=== PATIENT | male | born 1940 | race Caucasian/White ===

== ENCOUNTER 2019-02-23 19:04 | Inpatient (IN) ==
[2019-02-23] MEDS ORDERED: ACETAMINOPHEN 325 MG TABLET PO PRN (22:09)
[2019-02-23] MEDS ORDERED: ALBUTEROL/IPRATROPIUM 3 ML NEB RESP TX PRN (22:09)
[2019-02-23 22:16] LABS: Basophils % 0.3 % (0.0-0.8); Eosinophils # 0.1 10*3/uL (0.0-0.87); Eosinophils % 0.4 % (0.00-10.9); Hematocrit 38.1 VOL% (42.0-52.0); Hemoglobin 12.4 GM/DL (14.0-18.0); Immature Granulocytes % 0.4 %; Immature Granulocytes Absolute 0.05 #; Lymphocytes # 2.1 10*3/uL (1.4-4.0); Lymphocytes % 16.4 % (21.2-54.2); Mean Corpuscular HGB Conc 32.5 GM/DL (32-36); Mean Corpuscular Volume 96.5 FL (87-102); Mean Platelet Volume 10.8 FL (9.6-12.0); Monocytes % 8.1 % (1.7-12.7); Neutrophils % 74.4 % (38.7-73.9); Platelet Count 164 T/CUMM (130-400); Red Blood Count 3.95 MC/CUMM (3.8-5.5); Red Cell Distribution Width 14.9 % (9.3-17.3)
[2019-02-23] MEDS ORDERED: SODIUM CHLORIDE 0.45% 1,000 ML IV SCH (22:30)
[2019-02-23 22:39] LABS: Osmolality,Calculated 293.3 MOS/KG (273-304)
[2019-02-23] MEDS ORDERED: ONDANSETRON 4 MG/2 ML VIAL IV PRN (23:49)
[2019-02-24] MEDS ORDERED: cefTRIAXone 1,000 MG in SYRINGE 1 EACH IV SCH
[2019-02-24 01:18] LABS: PT Patient Result 60.6 SECS (9.6-12.2)
[2019-02-24 01:20] LABS: INR 5.7
[2019-02-24 01:22] LABS: Basophils % 0.3 % (0.0-0.8); Eosinophils # 0.1 10*3/uL (0.0-0.87); Eosinophils % 0.7 % (0.00-10.9); Hematocrit 39.9 VOL% (42.0-52.0); Hemoglobin 12.9 GM/DL (14.0-18.0); Immature Granulocytes % 0.4 %; Immature Granulocytes Absolute 0.06 #; Lymphocytes # 2.6 10*3/uL (1.4-4.0); Lymphocytes % 19.1 % (21.2-54.2); Mean Corpuscular HGB Conc 32.3 GM/DL (32-36); Mean Corpuscular Volume 97.6 FL (87-102); Mean Platelet Volume 10.8 FL (9.6-12.0); Neutrophils % 69.5 % (38.7-73.9); Platelet Count 169 T/CUMM (130-400); Red Blood Count 4.09 MC/CUMM (3.8-5.5); White Blood Count 13.3 T/CUMM (4-12)
[2019-02-24 01:23] LABS: Calcium 8.7 MG/DL (8.5-10.1); Osmolality,Calculated 290.3 MOS/KG (273-304)
[2019-02-24] MEDS: SODIUM CHLORIDE 0.9% 1,000 ML IV SCH ×4 (02:02→23:00)
[2019-02-24 02:58] LABS: PT Patient Result 80.2 SECS (9.6-12.2)
[2019-02-24 03:00] LABS: INR 7.5
[2019-02-24 04:02] LABS: INR 5.6; PT Patient Result 59.5 SECS (9.6-12.2)
[2019-02-24] MEDS: guaiFENesin 200 MG/10 ML UDCUP PO PRN ×3 (05:44→20:42)
[2019-02-24 08:10] LABS: INR 4.9
[2019-02-24] MEDS ORDERED: ENOXAPARIN 40 MG/0.4 ML SYRINGE SUBCUT SCH (09:00)
[2019-02-24] MEDS ORDERED: DOXYCYCLINE HYCLATE 100 MG CAPSULE PO SCH (09:00)
[2019-02-24] MEDS ORDERED: AZITHROMYCIN 250 MG TABLET PO SCH (09:00)
[2019-02-24] MEDS: GABAPENTIN 100 MG CAPSULE PO SCH ×3 (09:19→20:41)
[2019-02-24] MEDS: PANTOPRAZOLE 40 MG TABLET PO SCH (09:19)
[2019-02-24] MEDS: METOPROLOL SUCCINATE XL 50 MG TABLET PO SCH (09:19)
[2019-02-24 10:36] LABS: Risk Ratio 3.78; VLDL CHOLESTEROL 36.2 MG/DL
[2019-02-24] MEDS: ALBUTEROL/IPRATROPIUM 3 ML NEB RESP TX SCH ×2 (13:16→19:52)
[2019-02-24 13:51] LABS: PT Patient Result 59.4 SECS (9.6-12.2)
[2019-02-24 13:52] LABS: INR 5.5
[2019-02-24] MEDS: ATORVASTATIN 20 MG TABLET PO SCH (20:41)
[2019-02-24] MEDS: cefTRIAXone 1,000 MG in SYRINGE 1 EACH IV SCH (20:44)
[2019-02-24] MEDS: ACETAMINOPHEN 325 MG TABLET PO PRN (23:21)
[2019-02-25] MEDS: ALBUTEROL/IPRATROPIUM 3 ML NEB RESP TX SCH ×4 (01:25→19:55)
[2019-02-25 05:28] LABS: Basophils # 0.1 10*3/uL (0.0-0.2); Basophils % 0.4 % (0.0-0.8); Eosinophils # 0.2 10*3/uL (0.0-0.87); Eosinophils % 1.5 % (0.00-10.9); Hematocrit 39.4 VOL% (42.0-52.0); Hemoglobin 12.4 GM/DL (14.0-18.0); Immature Granulocytes Absolute 0.12 #; Lymphocytes % 17.4 % (21.2-54.2); Mean Corpuscular HGB Conc 31.5 GM/DL (32-36); Mean Corpuscular Volume 99.2 FL (87-102); Mean Platelet Volume 10.4 FL (9.6-12.0); Monocytes % 8.8 % (1.7-12.7); Neutrophils % 70.9 % (38.7-73.9); Platelet Count 169 T/CUMM (130-400); Red Blood Count 3.97 MC/CUMM (3.8-5.5); Red Cell Distribution Width 14.9 % (9.3-17.3); White Blood Count 11.5 T/CUMM (4-12)
[2019-02-25 05:30] LABS: INR 4.3
[2019-02-25 05:32] LABS: PT Patient Result 46.3 SECS (9.6-12.2)
[2019-02-25] MEDS: SODIUM CHLORIDE 0.9% 1,000 ML IV SCH ×2 (06:06→20:38)
[2019-02-25] MEDS: PANTOPRAZOLE 40 MG TABLET PO SCH (08:44)
[2019-02-25] MEDS: GABAPENTIN 100 MG CAPSULE PO SCH ×3 (08:44→20:41)
[2019-02-25] MEDS: METOPROLOL SUCCINATE XL 50 MG TABLET PO SCH (08:44)
[2019-02-25] MEDS: cefTRIAXone 1,000 MG in SYRINGE 1 EACH IV SCH (08:44)
[2019-02-25] MEDS: AZITHROMYCIN INJ 500 MG in SODIUM CHLORIDE 0.9% 250 ML IV SCH (08:46)
[2019-02-25] MEDS: DILTIAZEM CD 120 MG CAPSULE PO SCH ×2 (11:17→20:41)
[2019-02-25 11:27] LABS: Calcium 8.2 MG/DL (8.5-10.1); Osmolality,Calculated 288.1 MOS/KG (273-304)
[2019-02-25] MEDS ORDERED: MAGNESIUM SULF RIDER 4 GM in PREMIX 1 EACH IV PRN (12:12)
[2019-02-25] MEDS ORDERED: MAGNESIUM SULF RIDER 2 GM in PREMIX 1 EACH IV PRN (12:12)
[2019-02-25] MEDS: ACETAMINOPHEN 325 MG TABLET PO PRN ×2 (14:44→20:40)
[2019-02-25] MEDS: ATORVASTATIN 20 MG TABLET PO SCH (20:45)
[2019-02-26] MEDS: ALBUTEROL/IPRATROPIUM 3 ML NEB RESP TX SCH ×4 (01:35→19:16)
[2019-02-26] MEDS: ACETAMINOPHEN 325 MG TABLET PO PRN (05:14)
[2019-02-26] MEDS: guaiFENesin 200 MG/10 ML UDCUP PO PRN ×2 (05:16→12:48)
[2019-02-26 06:07] LABS: Basophils % 0.3 % (0.0-0.8); Eosinophils # 0.3 10*3/uL (0.0-0.87); Eosinophils % 2.7 % (0.00-10.9); Hematocrit 37.5 VOL% (42.0-52.0); Immature Granulocytes % 1.4 %; Immature Granulocytes Absolute 0.13 #; Lymphocytes # 1.6 10*3/uL (1.4-4.0); Lymphocytes % 16.9 % (21.2-54.2); Mean Corpuscular Volume 96.2 FL (87-102); Mean Platelet Volume 10.2 FL (9.6-12.0); Monocytes % 8.1 % (1.7-12.7); Neutrophils % 70.6 % (38.7-73.9); Platelet Count 190 T/CUMM (130-400); Red Cell Distribution Width 15.1 % (9.3-17.3); White Blood Count 9.6 T/CUMM (4-12)
[2019-02-26 06:19] LABS: Calcium 8.6 MG/DL (8.5-10.1)
[2019-02-26 06:24] LABS: INR 3.3
[2019-02-26 06:26] LABS: PT Patient Result 35.1 SECS (9.6-12.2)
[2019-02-26] MEDS: GABAPENTIN 100 MG CAPSULE PO SCH ×3 (08:35→20:56)
[2019-02-26] MEDS: DILTIAZEM CD 120 MG CAPSULE PO SCH ×2 (08:35→20:55)
[2019-02-26] MEDS: SODIUM CHLORIDE 0.9% 1,000 ML IV SCH (08:36)
[2019-02-26] MEDS: PANTOPRAZOLE 40 MG TABLET PO SCH (08:36)
[2019-02-26] MEDS: cefTRIAXone 1,000 MG in SYRINGE 1 EACH IV SCH (08:37)
[2019-02-26] MEDS: AZITHROMYCIN INJ 500 MG in SODIUM CHLORIDE 0.9% 250 ML IV SCH (08:39)
[2019-02-26] MEDS: METOPROLOL SUCCINATE XL 50 MG TABLET PO SCH ×2 (09:45→20:56)
[2019-02-26] MEDS ORDERED: FUROSEMIDE 40 MG/4 ML VIAL IV ONE (12:30)
[2019-02-26] MEDS ORDERED: predniSONE 20 MG TABLET PO ONE (12:30)
[2019-02-26] MEDS: ATORVASTATIN 20 MG TABLET PO SCH (20:55)
[2019-02-26] MEDS: AMOXICILLIN/CLAV 875 MG TABLET PO SCH (20:56)
[2019-02-27] MEDS: ALBUTEROL/IPRATROPIUM 3 ML NEB RESP TX SCH ×4 (00:38→19:48)
[2019-02-27 04:55] LABS: Basophils % 0.2 % (0.0-0.8); Eosinophils % 0.1 % (0.00-10.9); Hematocrit 36.7 VOL% (42.0-52.0); Hemoglobin 12.1 GM/DL (14.0-18.0); Immature Granulocytes % 1.4 %; Immature Granulocytes Absolute 0.14 #; Lymphocytes # 1.1 10*3/uL (1.4-4.0); Lymphocytes % 11.2 % (21.2-54.2); Mean Corpuscular Volume 93.4 FL (87-102); Mean Platelet Volume 10.2 FL (9.6-12.0); Monocytes % 7.1 % (1.7-12.7); Platelet Count 229 T/CUMM (130-400); Red Blood Count 3.93 MC/CUMM (3.8-5.5); Red Cell Distribution Width 14.7 % (9.3-17.3); White Blood Count 10.2 T/CUMM (4-12)
[2019-02-27 05:17] LABS: Osmolality,Calculated 278.7 MOS/KG (273-304)
[2019-02-27 05:23] LABS: INR 2.6
[2019-02-27] MEDS ORDERED: AZITHROMYCIN 250 MG TABLET PO ONE (09:00)
[2019-02-27] MEDS ORDERED: WARFARIN 5 MG TABLET PO SCH (09:00)
[2019-02-27] MEDS: AMOXICILLIN/CLAV 875 MG TABLET PO SCH ×2 (09:17→20:52)
[2019-02-27] MEDS: GABAPENTIN 100 MG CAPSULE PO SCH ×3 (09:17→20:53)
[2019-02-27] MEDS: DILTIAZEM CD 120 MG CAPSULE PO SCH ×2 (09:17→20:53)
[2019-02-27] MEDS: METOPROLOL SUCCINATE XL 50 MG TABLET PO SCH ×2 (09:17→20:52)
[2019-02-27] MEDS: predniSONE 20 MG TABLET PO SCH (09:18)
[2019-02-27] MEDS: PANTOPRAZOLE 40 MG TABLET PO SCH (09:30)
[2019-02-27] MEDS ORDERED: FUROSEMIDE 40 MG/4 ML VIAL IV ONE (12:30)
[2019-02-27] MEDS: guaiFENesin 200 MG/10 ML UDCUP PO PRN (14:05)
[2019-02-27] MEDS: ATORVASTATIN 20 MG TABLET PO SCH (20:52)
[2019-02-28] MEDS: ALBUTEROL/IPRATROPIUM 3 ML NEB RESP TX SCH ×2 (00:38→08:02)
[2019-02-28 07:21] LABS: Basophils % 0.2 % (0.0-0.8); Eosinophils % 0.2 % (0.00-10.9); Hematocrit 37.7 VOL% (42.0-52.0); Hemoglobin 12.4 GM/DL (14.0-18.0); Immature Granulocytes % 1.3 %; Immature Granulocytes Absolute 0.17 #; Lymphocytes # 1.9 10*3/uL (1.4-4.0); Lymphocytes % 13.7 % (21.2-54.2); Mean Corpuscular HGB Conc 32.9 GM/DL (32-36); Monocytes % 7.8 % (1.7-12.7); Neutrophils % 76.8 % (38.7-73.9); Platelet Count 270 T/CUMM (130-400); Red Blood Count 4.01 MC/CUMM (3.8-5.5); Red Cell Distribution Width 14.6 % (9.3-17.3); White Blood Count 13.6 T/CUMM (4-12)
[2019-02-28 07:27] LABS: INR 1.8; PT Patient Result 19.6 SECS (9.6-12.2)
[2019-02-28 07:45] LABS: Calcium 9.4 MG/DL (8.5-10.1); Osmolality,Calculated 282.7 MOS/KG (273-304)
[2019-02-28] MEDS: METOPROLOL SUCCINATE XL 50 MG TABLET PO SCH (08:03)
[2019-02-28] MEDS: predniSONE 20 MG TABLET PO SCH (08:03)
[2019-02-28] MEDS: AMOXICILLIN/CLAV 875 MG TABLET PO SCH (08:03)
[2019-02-28] MEDS: DILTIAZEM CD 120 MG CAPSULE PO SCH (08:04)
[2019-02-28] MEDS: PANTOPRAZOLE 40 MG TABLET PO SCH (08:04)
[2019-02-28] MEDS: GABAPENTIN 100 MG CAPSULE PO SCH ×2 (08:05→14:36)
[2019-02-28] MEDS ORDERED: WARFARIN 5 MG TABLET PO SCH (09:00)
[2019-02-28] MEDS ORDERED: predniSONE 20 MG TABLET PO SCH (09:19)
[2019-02-28 12:09] VITALS: BP 99/53
== END 2019-02-28 15:32 | disposition home or self-care (01) | DRG 194 ==
LOC: SUATTDRO 20:18 → N.2E 20:18
PROVIDERS: ADMIT Internal Medicine; ATTEND Internal Medicine